=== PATIENT | male | born 1960 | race Caucasian/White ===

== ENCOUNTER 2020-10-16 14:27 | Emergency (ER) | payer OTHER ==
[2020-10-16] MEDS ORDERED: NORCO 5-325 TA1 EACH PO (16:28)
== END 2020-10-16 16:39 | disposition home or self-care (01) ==
LOC: FER 14:27
DX: S22.32XA Fracture of one rib, left side, initial encounter for closed fracture (principal); I10 Essential (primary) hypertension; V86.99XA Unspecified occupant of other special all-terrain or other off-road motor vehicle injured in nontraffic accident, initial encounter; Y92.009 Unspecified place in unspecified non-institutional (private) residence as the place of occurrence of the external cause
CPT/HCPCS: 73030